=== PATIENT | male | born 1980 | race Caucasian/White ===

== ENCOUNTER 2020-12-21 16:44 | Emergency (ER) | payer OTHER ==
[~2020-12-21 16:44] MED LIST: AMOXICILLIN500 MG PO; NAPROXEN500 MG PO
[2020-12-21 17:40] LABS: BASOPHIL 0.4 % (0-2); EOSINOPHIL 1.9 % (0-5); HCT 45.3 % (42.0-52.0); HGB 15.2 g/dl (13.2-18.0); LYMPHOCYTE 51.8 % (15-48); MCH 29.3 pg (25.0-31.0); MCHC 33.6 g/dL (32.0-36.0); MCV 87.3 fL (78.0-100.0); MONOCYTE 9.9 % (0-12); MPV 9.5 fL (6.0-9.5); NEUTROPHIL 35.6 % (41-80); NRBC 0; PLT 220 K/uL (150-400); RBC 5.19 M/uL (4.70-6.00); RDW 13.1 % (11.5-14.0)
[2020-12-21 17:44] LABS: WBC 5.2 K/uL (4.0-10.5)
[2020-12-21 17:57] LABS: ALBUMIN 3.7 g/dL (3.4-5.0); BILIRUBIN - TOTAL 0.3 mg/dL (0.2-1.0); BUN/CREAT RATIO (CALC) 12.3 RATIO; CREATININE 0.81 mg/dL (0.67-1.17); GLOBULIN (CALCULATION) 3.7 g/dL; POTASSIUM 4.5 mmol/L (3.5-5.1); TOTAL PROTEIN 7.4 g/dL (6.4-8.2)
== END 2020-12-21 19:24 | disposition home or self-care (01) ==
LOC: FER 16:44
PROVIDERS: Emergency Medicine
DX: J06.9 Acute upper respiratory infection, unspecified (principal); R07.9 Chest pain, unspecified; I10 Essential (primary) hypertension; J44.9 Chronic obstructive pulmonary disease, unspecified; F17.210 Nicotine dependence, cigarettes, uncomplicated; Z20.822 Contact with and (suspected) exposure to COVID-19; Z79.899 Other long term (current) drug therapy
CPT/HCPCS: 36415; 71045; 80053; 84484; 85025; 93005; J2405; J2930; J7030; U0002

== ENCOUNTER 2021-05-18 11:57 | Emergency (ER) | payer OTHER ==
[2021-05-18] MEDS ORDERED: MOTRIN600 MG PO (14:30)
== END 2021-05-18 14:49 | disposition home or self-care (01) ==
LOC: FER 11:57
DX: S22.31XA Fracture of one rib, right side, initial encounter for closed fracture (principal); J44.9 Chronic obstructive pulmonary disease, unspecified; Z88.6 Allergy status to analgesic agent; X50.1XXA Overexertion from prolonged static or awkward postures, initial encounter
CPT/HCPCS: 71101